=== PATIENT | male | born 1980 | race Caucasian/White ===

== ENCOUNTER 2018-06-28 09:54 | Outpatient (REF) | payer MEDICAID, SELFPAY ==
--- NOTE | 2018-06-28 09:00 | SKI_PTH ---
PATIENT: Juan Jordan LOC: [facility] U#:[id number] AGE/SX: 38/M ROOM: RE06/28/[address]: Elvia Neil MD : 1980 BED: DIS: 06/28/2018 SPEC #: [id number] RECD: 06/28/18 13:01 STATUS: NOREEN HENDERSON #: [id number] HARRY: 06/28/18 09:[address]: Elvia Neil DEPT: Surgical Specimen RECD BY: Florence Anne Tissues: 1 - SKIN BIOPSY(SHAVE/PUNCH) Procedures: SKIN LEVEL 4 Comments: [id number]
== END 2018-06-28 10:14 ==
LOC: LBN 09:54
PROVIDERS: PCP Family Medicine; Visit Provider Family Medicine
DX: C43.62 Malignant melanoma of left upper limb, including shoulder (principal)
CPT/HCPCS: 88305

== ENCOUNTER 2018-07-07 06:12 | Day surgery (SDC) | payer MEDICAID, SELFPAY ==
--- NOTE | 2018-07-07 06:54 | ROE_ITS ---
Date of service: 07/07/18 Time of Service: 09:45 Operative Note DATE OF PROCEDURE: 07/07/18 PRE-OP DIAGNOSIS: Melanoma left upper extremity POST-OP DIAGNOSIS: same PROCEDURE: Wide local excision with sentinel lymph node biopsy SURGEON: Shantel Silver LOCOMOTIVE CRANE OPERATOR: Zachery Griffith ANESTHESIA: GETA (ASA 3/ Arnold Mays CRNA) ESTIMATED BLOOD LOSS: 20 PATHOLOGY: other ([place] lymph node/ skin lesion) COMPLICATIONS: None Patient was transported to: PACU Patient's condition: stable Implants: None Indications: Mr. Jordan is a pleasant 38 year old male with a biopsy proven melanoma of his LUE. Wide local excision and SLN bx were discussed in the office. Risks, benefits, complications were reviewed with the patient as well as alternative. Complications include but are not limited to bleeding, infection, wound dehiscence, inability to find the sentinel node, need for a second surgery if the margins are not wide enough and adverse reaction to the medication. Questions were entertained and answered to his satisfaction and he wished to proceed. No guarantees were given or implied. Findings: melanoma- 1 cm Specimen size- 8 x 4 cm One blue lymphnode with 2 others attached. The blue lymph node was also hot Axillary scan- 40,885 SLN- 28,843 Post- excision axillary- 850 Procedure Description: AT 7 am the patient was taken to the Radiology department and 3 cc of radioactive material was infected into the dermis around the skin lesion on his LUE. The patient was then scanned and the lymphatic drainage was marked in the left axilla. The patient was brought back to same Day Surgery. The patient was then taken back to the Operating room at 10:30. The patient was placed in a supine position and placed under General anesthesia with LMA. Once the LMA was secured he was placed in a right decubitous position. He was secured with a soares bag and a belt over his legs. His left arm was then placed on a Gonzalez stand with 3 pillows and secured with tape. The dermis around the skin lesion was injected with 1 cc of Methilyn blue. The hair in the left axilla was clipped. The left axilla, side of his chest and his LUE/shoulder was prepped and draped in a standard fashion with chlorprep. The axilla was scanned and the hot area was marked. The count was 40,885. 2% Lidocaine mixed 50/50 with Bupivocaine 05% with epi was injected into the skin and subcutaneous tissue in the axilla. A 2 cm incision was made and using blunt dissection with hemostats a blue lymphnode was identified. There were 2 other lymph nodes were noted to be adhered to the blue lymph node. All 3 lymph nodes were removed. The radioactivity was counted at 28,843. The axilla was scanned again and the count was 850. No other blue nodes were identified. The wound was irrigated with saline. There was a small bleeding area noted and c auterized. The lymph nodes were placed in formalin and sent to pathology. The wound was then dry. The subcutaneous tissue was re-approximated with 3-0 vicryl. The dermis was closed with 4-0 vicryl. The skin was cleaned and dried and skin affix was applied. While the axillary incision was closed by EDNA Greenwood, I injected the same local anesthetic around the lesion on his left Upper extremity. The lesion was measured at 1 cm. An elliptical area was marked measuring 4 cm wide and 8 cm long. An incision was made with a 10 blade. Using cautery the dissection was continued through the subcutaneous tissue down to the muscle. The skin lesion was removed and marked with a 2 proline in the superior border. The specimen was placed into formalin. The subcutaneous tissue was re-approximated with 2-0 vicryl in 2 layers. The dermis was re-approximated with 2-0 proline. The skin was cleaned and dried. Mastasol and steri-strips were applied. A dry dressing was applied and secured with tape. The patient was woken up extubated and taken to the PACU in stable condition. There were no immediate complications. The sponge, instrument and needle counts were correct at the end of the case.
--- NOTE | 2018-07-07 06:54 | W.PM.DSUDISC ---
Discharge Plan Disposition Patient Disposition: HOME Condition: Good Discharge Details Reason For Visit: MELANOMA (L) UPEER EXTREMITY Attending Provider: Shantel Silver Primary Care Provider: Elvia Neil Home Meds and New Rx's Prescriptions: New oxycodone 5 mg Tablet 5 mg PO Q6H PRN PRN (Reason: Pain) Qty: 14 RF: 0 Continued AEROCHAMBER 1 EACH spacer 1 ea Miscellaneous QID PRNQty: 1 RF: 0 albuterol sulfate [ProAir HFA] 8.5 GM HFA aerosol inhaler 1 - 2 puff Inhalation Q6H PRN Qty: 1 RF: 5 Discharge Instructions Instructions: Care For Your Stitches (DC) Additional Instructions: Activity at Home after surgery: 1. Make sure you walk outside at least 4 times per day 2. You should be able to climb a flight of stairs 3. No driving while in pain or taking pain medications 4. No strenuous activity or heavy lifting for 4 weeks (open surgery) Diet, Nutrition, & wound healin. Avoid alcohol until after you are recovered from your surgery 2. Make sure to eat plenty of lean protein (meat, fish, eggs, cottage cheese, beans) 3. Eat a variety of fruits and vegetables. Eat plenty of high fiber foods to avoid constipation. 4. Drink plenty of liquids to stay hydrated and avoid constipation Pain Medications: 1. Alternate Tylenol 650 mg and Ibuprofen 600 mg every 3 hours 2. If a narcotic has been prescribed take as directed only for breakthrough pain For Constipation: 1. Take Milk of Magnesia or MiraLax daily as needed for constipation Other: 1. You may shower daily. Do not scrub the incisions 2. Do not soak the incisions for 1 week 3. You may alternate ice and heat as needed for pain and swelling Wound Care: 1. Keep the incisions clean and dry Please call our office if you develop: 1. Fevers >101.5 2. Nausea or Vomiting 3. Worsening pain 4. Redness and thick discharge from the wounds If after hours please call the Hospital at and ask to speak to the on-call surgeon Referrals: Shantel Silver MD [ [facility] STAFF PHYSICIAN] - 07/20/18 2:00 pm Activity:: careful with left arm Diet:: As Tolerated Discharge Orders Discharge Orders: Discharge Order (Routine); Ordered 07/07/18 Ordered By: Shantel Silver DS: Diagnosis Discharge Diagnosis (1) Melanoma: Status: Acute (2) H/O melanoma excision: Status: Acute (3) H/O lymph node biopsy: Status: Acute
--- NOTE | 2018-07-07 06:57 | PDOC.DSDIS_ITS ---
Discharge Plan Disposition Patient Disposition: HOME Condition: Good Discharge Details Reason For Visit: MELANOMA (L) UPEER EXTREMITY Attending Provider: Shantel Silver Primary Care Provider: Elvia Neil Home Meds and New Rx's Prescriptions: New oxycodone 5 mg Tablet 5 mg PO Q6H PRN PRN (Reason: Pain) Qty: 14 RF: 0 Continued AEROCHAMBER 1 EACH spacer 1 ea Miscellaneous QID PRNQty: 1 RF: 0 albuterol sulfate [ProAir HFA] 8.5 GM HFA aerosol inhaler 1 - 2 puff Inhalation Q6H PRN Qty: 1 RF: 5 Discharge Instructions Instructions: Care For Your Stitches (DC) Additional Instructions: Activity at Home after surgery: 1. Make sure you walk outside at least 4 times per day 2. You should be able to climb a flight of stairs 3. No driving while in pain or taking pain medications 4. No strenuous activity or heavy lifting for 4 weeks (open surgery) Diet, Nutrition, & wound healin. Avoid alcohol until after you are recovered from your surgery 2. Make sure to eat plenty of lean protein (meat, fish, eggs, cottage cheese, beans) 3. Eat a variety of fruits and vegetables. Eat plenty of high fiber foods to avoid constipation. 4. Drink plenty of liquids to stay hydrated and avoid constipation Pain Medications: 1. Alternate Tylenol 650 mg and Ibuprofen 600 mg every 3 hours 2. If a narcotic has been prescribed take as directed only for breakthrough pain For Constipation: 1. Take Milk of Magnesia or MiraLax daily as needed for constipation Other: 1. You may shower daily. Do not scrub the incisions 2. Do not soak the incisions for 1 week 3. You may alternate ice and heat as needed for pain and swelling Wound Care: 1. Keep the incisions clean and dry Please call our office if you develop: 1. Fevers >101.5 2. Nausea or Vomiting 3. Worsening pain 4. Redness and thick discharge from the wounds If after hours please call the Hospital at and ask to speak to the on-call surgeon Referrals: Shantel Silver MD [ [facility] STAFF PHYSICIAN] - 07/20/18 2:00 pm Activity:: careful with left arm Diet:: As Tolerated Discharge Orders Discharge Orders: Discharge Order (Routine); Ordered 07/07/18 Ordered By: Shantel Silver DS: Diagnosis Discharge Diagnosis (1) Melanoma: Status: Acute (2) H/O melanoma excision: Status: Acute (3) H/O lymph node biopsy: Status: Acute
== END 2018-07-07 06:32 | disposition home or self-care (01) ==
PROVIDERS: PCP Family Medicine; Visit Provider Surgery
DX: R69 Illness, unspecified (principal)

== ENCOUNTER 2018-07-07 06:43 | Day surgery (SDC) | payer MEDICAID, SELFPAY ==
[2018-07-07] VITALS (8 sets, daily range): BP systolic 73–134; BP diastolic 52–80; PULSE 50–80; RESP 15–21; TEMP 35.7–36.9; O2SAT 99–100
--- NOTE | 2018-07-07 06:49 | DI.NM_ITS ---
SYMPTOMS/DIAGNOSIS: SENTINEL LYMPH NODE BIOPSY FOR MELANOMA OF LEFT UPPER EXTREMITY, C43.9 SENTINEL NODE INJECTION: 1 mCi of filtered sulfur colloid was injected in the left shoulder by Dr. Silver. The patient was then scanned up to 15 minutes. A small region of increased photon density in the axilla is presumed to represent the sentinel node. A marker was placed on this site. Please see Dr. Silver's procedure report for further information.
--- NOTE | 2018-07-07 06:52 | ROE_ITS ---
Date of service: 07/07/18 Time of Service: 09:45 Operative Note DATE OF PROCEDURE: 07/07/18 PRE-OP DIAGNOSIS: Melanoma left upper extremity POST-OP DIAGNOSIS: same PROCEDURE: Wide local excision with sentinel lymph node biopsy SURGEON: Shantel Silver LOST CHARGE CARD CLERK: Zachery Griffith ANESTHESIA: GETA (ASA 3/ Arnold Mays CRNA) ESTIMATED BLOOD LOSS: 20 PATHOLOGY: other ([place] lymph node/ skin lesion) COMPLICATIONS: None Patient was transported to: PACU Patient's condition: stable Implants: None Indications: Mr. Jordan is a pleasant 38 year old male with a biopsy proven melanoma of his LUE. Wide local excision and SLN bx were discussed in the office. Risks, benefits, complications were reviewed with the patient as well as alternative. Complications include but are not limited to bleeding, infection, wound dehiscence, inability to find the sentinel node, need for a second surgery if the margins are not wide enough and adverse reaction to the medication. Questions were entertained and answered to his satisfaction and he wished to proceed. No guarantees were given or implied. Findings: melanoma- 1 cm Specimen size- 8 x 4 cm One blue lymphnode with 2 others attached. The blue lymph node was also hot Axillary scan- 40,885 SLN- 28,843 Post- excision axillary- 850 Procedure Description: AT 7 am the patient was taken to the Radiology department and 3 cc of radioactive material was infected into the dermis around the skin lesion on his LUE. The patient was then scanned and the lymphatic drainage was marked in the left axilla. The patient was brought back to same Day Surgery. The patient was then taken back to the Operating room at 10:30. The patient was placed in a supine position and placed under General anesthesia with LMA. Once the LMA was secured he was placed in a right decubitous position. He was secured with a soares bag and a belt over his legs. His left arm was then placed on a Gonzalez stand with 3 pillows and secured with tape. The dermis around the skin lesion was injected with 1 cc of Methilyn blue. The hair in the left axilla was clipped. The left axilla, side of his chest and his LUE/shoulder was prepped and draped in a standard fashion with chlorprep. The axilla was scanned and the hot area was marked. The count was 40,885. 2% Lidocaine mixed 50/50 with Bupivocaine 05% with epi was injected into the skin and subcutaneous tissue in the axilla. A 2 cm incision was made and using blunt dissection with hemostats a blue lymphnode was identified. There were 2 other lymph nodes were noted to be adhered to the blue lymph node. All 3 lymph nodes were removed. The radioactivity was counted at 28,843. The axilla was scanned again and the count was 850. No other blue nodes were identified. The wound was irrigated with saline. There was a small bleeding area noted and cauterized. The lymph nodes were placed in formalin and sent to pathology. The wound was then dry. The subcutaneous tissue was re-approximated with 3-0 vicryl. The dermis was closed with 4-0 vicryl. The skin was cleaned and dried and skin affix was applied. While the axillary incision was closed by EDNA Greenwood, I injected the same local anesthetic around the lesion on his left Upper extremity. The lesion was measured at 1 cm. An elliptical area was marked measuring 4 cm wide and 8 cm long. An incision was made with a 10 blade. Using cautery the dissection was continued through the subcutaneous tissue down to the muscle. The skin lesion was removed and marked with a 2 proline in the superior border. The specimen was placed into formalin. The subcutaneous tissue was re-approximated with 2-0 vicryl in 2 layers. The dermis was re-approximated with 2-0 proline. The skin was cleaned and dried. Mastasol and steri-strips were applied. A dry dressing was applied and secured with tape. The patient was woken up extubated and taken to the PACU in stable condition. There were no immediate complications. The sponge, instrument and needle counts were correct at the end of the case. cc: VANESSA HAYNES, EDEN
--- NOTE | 2018-07-07 06:54 | PDOC.DSDIS_ITS ---
Discharge Plan Disposition Patient Disposition: HOME Condition: Good Discharge Details Reason For Visit: MELANOMA (L) UPEER EXTREMITY Attending Provider: Shantel Silver Primary Care Provider: Elvia Neil Home Meds and New Rx's Prescriptions: New oxycodone 5 mg Tablet 5 mg PO Q6H PRN PRN (Reason: Pain) Qty: 14 RF: 0 Continued AEROCHAMBER 1 EACH spacer 1 ea Miscellaneous QID PRNQty: 1 RF: 0 albuterol sulfate [ProAir HFA] 8.5 GM HFA aerosol inhaler 1 - 2 puff Inhalation Q6H PRN Qty: 1 RF: 5 Discharge Instructions Instructions: Care For Your Stitches (DC) Additional Instructions: Activity at Home after surgery: 1. Make sure you walk outside at least 4 times per day 2. You should be able to climb a flight of stairs 3. No driving while in pain or taking pain medications 4. No strenuous activity or heavy lifting for 4 weeks (open surgery) Diet, Nutrition, & wound healin. Avoid alcohol until after you are recovered from your surgery 2. Make sure to eat plenty of lean protein (meat, fish, eggs, cottage cheese, beans) 3. Eat a variety of fruits and vegetables. Eat plenty of high fiber foods to avoid constipation. 4. Drink plenty of liquids to stay hydrated and avoid constipation Pain Medications: 1. Alternate Tylenol 650 mg and Ibuprofen 600 mg every 3 hours 2. If a narcotic has been prescribed take as directed only for breakthrough pain For Constipation: 1. Take Milk of Magnesia or MiraLax daily as needed for constipation Other: 1. You may shower daily. Do not scrub the incisions 2. Do not soak the incisions for 1 week 3. You may alternate ice and heat as needed for pain and swelling Wound Care: 1. Keep the incisions clean and dry Please call our office if you develop: 1. Fevers >101.5 2. Nausea or Vomiting 3. Worsening pain 4. Redness and thick discharge from the wounds If after hours please call the Hospital at and ask to speak to the on-call surgeon Referrals: Shantel Silver MD [ [facility] STAFF PHYSICIAN] - 07/20/18 2:00 pm Activity:: careful with left arm Diet:: As Tolerated Discharge Orders Discharge Orders: Discharge Order (Routine); Ordered 07/07/18 Ordered By: Shantel Silver DS: Diagnosis Discharge Diagnosis (1) Melanoma: Status: Acute (2) H/O melanoma excision: Status: Acute (3) H/O lymph node biopsy: Status: Acute CC:
[2018-07-07] MEDS: Lactated Ringers 1,000 ML 80 ML IV ×2 (08:15→10:46)
[2018-07-07] MEDS: ceFAZolin 2 GM/50 ML BAG IVPB (08:45)
--- NOTE | 2018-07-07 09:40 | LYM_PTH ---
PATIENT: Juan Jordan LOC: [facility] U#:[id number] AGE/SX: 38/M ROOM: RE07/07/[address]: Shantel Silver MD : 1980 BED: DIS: 07/07/2018 SPEC #: [id number] RECD: 07/08/18 11:53 STATUS: NOREEN RE #: [id number] HARRY: 07/07/18 09:[address]: Shantel Silver DEPT: Surgical Specimen RECD BY: Florence Anne ENTERED: 07/08/18 11:57 SP TYPE: LYM OTHR DR: Elvia Neil MD Tissues: 1 - LYMPH NODE RESECTION 2 - SKIN BIOPSY(SHAVE/PUNCH) Procedures: IMMUNOPEROXIDASE STAIN GROSS AND MICRO LEVEL 5 SKIN LEVEL 4 Comments: [id number] (BOTH SAMPLES RADIOACTIVE MATERIAL)
[2018-07-07] MEDS: Lidocaine 2% Multi-Dose 50 ML VIAL (10:00)
== END 2018-07-07 13:27 | disposition home or self-care (01) ==
LOC: DSU 06:44
PROVIDERS: PCP Family Medicine; Visit Provider Surgery
PROC: (CPT 38525; principal; 2018-07-07 09:00)
DX: C43.62 Malignant melanoma of left upper limb, including shoulder (principal); J44.9 Chronic obstructive pulmonary disease, unspecified; Z87.891 Personal history of nicotine dependence; F12.90 Cannabis use, unspecified, uncomplicated
CPT/HCPCS: 38525; 11606; 12034; 38792; 88305; 78195; 88307; 88361; J0690; J1885; J2250; J2405

== ENCOUNTER 2019-05-04 23:39 | Emergency (ER) | payer MEDICAID, SELFPAY ==
[2019-05-04 23:53] VITALS: BP 132/78; PULSE 83; RESP 16; TEMP 36.6; O2SAT 99
--- NOTE | 2019-05-05 00:04 | ED.GENADUL_ITS ---
Discharge Plan Disposition Patient Disposition: HOME Condition: Stable Discharge Details Chief Complaint: Headache Clinical Impression: Migraine Primary Care Provider: Elvia Neil ED Provider: Anil Damon Home Meds and New Rx's Prescriptions: Continued AEROCHAMBER 1 EACH spacer 1 ea Miscellaneous QID PRNQty: 1 RF: 0 albuterol sulfate [ProAir HFA] 8.5 GM HFA aerosol inhaler 1 - 2 puff Inhalation Q6H PRN Qty: 1 RF: 5 Discharge Instructions Instructions: Migraine Headache (ED) Additional Instructions: you can take 1000mg tylenol and 600mg ibuprofen every 6 hours for pain as needed follow up with your primary care provider within 1-2 weeks if you have severe worsening pain, persistent vomit or fevers return to the [facility] department Medical Decision Making 39 yo male who states he has had migraines in the past was playing video games when he started to have a pain in superior head with n/v. FEels it is worse than prior migrianes, slowly worsened. Denies vision changes, weakness, numbness. CN II-XII are intact and no focal deficits, NIH of 0. No fevers or meningismus so doubt brush maker infection. Given symptoms are worse and within 6 hours of symptoms onset will obtain CT to eval for sah vs sdh labs and imaging show no acute findings, and he is now sleeping and has no pain. Will d/c and have him f/u with pcp, return precautions given Differential Diagnosis Differential Diagnosis: migraine, tension headache, sah, sdh Imaging Data Radiologic Study: Attestation: I personally reviewed and interpreted this imaging study as follows: Imaging: CT Scan Radiologist's impression: IMPRESSION: 1. Incidental finding of a pineal cyst. 2. No intracranial hemorrhage. 3. No mass or edema of the cerebrum, brainstem, or cerebellum. 4. Clear sinuses. Lab Data Lab results reviewed: Yes I reviewed the patient's lab results. HPI General Mode of arrival: ambulatory . Date/Time Provider Initiated Documentation: 05/04/19 23:43 . Limitations to Documentation: no limitations . Information obtained by: patient . History of Present Illness 39 year old M presents to the emergency department with the chief complaint of headache, described as moderate and severe, Quality is described as aching, Patient reports no radiation. Patient started experiencing this hour(s) (2) and it has been constant. No relieving factors improve symptom(s), No exacerbating factors reported . Patient notes nausea/vomiting. Patient did receive the following treatments prior to arrival, none Related Data Home Medications Medication Instructions Recorded Confirmed albuterol sulfate [ProAir HFA] 1 - 2 puff INHALATION Q6H PRN #1 07/01/17 07/07/18 inhaler Previous Rx's Medication Instructions Recorded albuterol sulfate [ProAir HFA] 1 - 2 puff INHALATION Q6H PRN #1 07/01/17 inhaler Allergies Allergy/AdvReac Type Severity Reaction Status Date / Time No Known Allergies Allergy Unverified 05/05/19 00:25 General Stated Complaint: Headache JOÃO: 3 Review of Systems All systems reviewed & are unremarkable except as noted in HPI and below Constitutional Constitutional: Denies chills, Denies fever(s) and Denies weakness ENT Ears, Nose, Mouth, and Throat: Denies change in voice Cardiovascular Cardiovascular: Denies chest pain and Denies dyspnea Respiratory Respiratory: Denies cough and Denies dyspnea Gastrointestinal Gastrointestinal: Denies abdominal pain Musculoskeletal Musculoskeletal: Denies joint swelling Neurologic Neurologic: Denies weakness [facility] Social History Smoking/Tobacco Use Status: Current-Occasional Tobacco Type: e-cigarettes Alcohol Intake: never Drug use: Daily Substance use type: marijuana Details: Pt states he vapes CBD, marijuana daily Housing: house current occupation: none Pets and animals: Yes Pets and animals: cat(s) and other Details: rabbit What type of physical activity do you participate in: none Special anabella needs: No Do you feel safe at home: Yes Do you feel safe in your relationship?: Yes Exam Const General: no acute distress Orientation: alert HENMT Head: normal to inspection Ears: external ears normal General nose exam: external nose normal Mouth: moist mucous membranes Eyes General: appearance normal, both eyes and all related structures Neck Neck: normal visual inspection Resp Effort & Inspection: normal respiratory effort and able to speak in complete sentences Cardio Rate: regular rate Skin General skin exam: no rashes or lesions noted Neuro General: alert and oriented x3 Extrem General: normal to inspection Psych Mental Status: mental status grossly normal Course Vital Signs Vital signs: Vital Signs Temperature 36.6 C 05/04/19 23:53 Pulse 83 05/04/19 23:53 Respiratory Rate 16 05/04/19 23:53 Blood Pressure 132/78 05/04/19 23:53 Pulse Oximetry 99 05/04/19 23:53 Temperature 36.6 C 05/04/19 23:53 Temperature Source Temporal Artery Scan 05/04/19 23:53 Pulse 83 05/04/19 23:53 Respiratory Rate 16 05/04/19 23:53 Respiratory Effort 05/04/19 23:56 Blood Pressure 132/78 05/04/19 23:53 Pulse Oximetry 99 05/04/19 23:53 Oxygen Delivery Method Room Air 05/04/19 23:53 Oxygen Flow Rate 0 05/04/19 23:53 Pain Level 8 05/04/19 23:53
[2019-05-05] MEDS: Dexamethasone 10 MG/ML VIAL IVP (00:16)
[2019-05-05] MEDS: Normal Saline 1,000 ML 1000 ML IV (00:16)
[2019-05-05 00:17] LABS: Abs Immature Grans 0.04 k/cumm (0.0-0.09); Absolute Basophil Count 0.03 k/cumm (0.0-0.2); Absolute Eosinophil Count 0.07 k/cumm (0.0-0.7); Absolute Lymphocyte Count 1.13 k/cumm (1.2-3.4); Absolute Monocyte Count 0.37 k/cumm (0.11-0.7); Absolute Neutrophil Count 11.62 k/cumm (1.2-6.7); Basophils % 0.2; Eosinophils % 0.5; HCT 43.8 % (40.0-50.0); HGB 15.3 g/dL (13.5-17.5); Immature Grans % 0.3 %; Lymphocytes % 8.5; Mean Corp. HGB Concentration 34.9 g/dL (32.0-36.0); Mean Corpuscular Hemoglobin 29.4 pg (27.0-33.0); Mean Corpuscular Volume 84.2 fL (80-95); Monocytes % 2.8; Neutrophils % 87.7; Platelet Count 275 x1000/uL (130-400); RBC Distribution Width 12.7 % (11.8-14.1); White Blood Cell Count 13.25 k/cumm (4.4-10.8)
[2019-05-05] MEDS: Prochlorperazine 10 MG/2 ML VIAL IVP (00:18)
[2019-05-05 00:26] VITALS: BP 121/78; PULSE 68; RESP 18; O2SAT 98
[2019-05-05 00:28] LABS: INR 1.1 (0.9-1.1); Prothrombin Time 10.8 sec (9.3-11.0)
[2019-05-05 00:31] LABS: PTT Activated 24.1 sec (21.0-31.4)
[2019-05-05 00:32] LABS: ALT 25 U/L (16-63); AST 16 U/L (15-37); Albumin 4.1 g/dL (3.4-5.0); Alkaline Phosphatase 60 U/L (46-116); Anion Gap 12.7 mmol/L (3-11); BUN 8 mg/dL (7-18); Bilirubin, Total 0.5 mg/dL (0.2-1.0); CO2 24.3 mmol/L (21.0-32.0); CREATININE 1.13 mg/dL (0.70-1.30); Chloride 104 mmol/L (98-107); Glucose 126 mg/dL (74-106); Potassium 3.7 mmol/L (3.5-5.1); Sodium 141 mmol/L (136-145)
--- NOTE | 2019-05-05 00:39 | DI.CT_ITS ---
EXAM: CT HEAD WO CLINICAL HISTORY: headache. TECHNIQUE: Imaging Protocol: Axial computed tomography images with coronal and sagittal reformatted images were created and reviewed COMPARISON: No exams were available for comparison FINDINGS: Ventricles and Extra axial spaces: Normal in size and morphology for the patient's age. There appears to be a 1.2 centimeter peripherally calcified lesion in the region of the pineal gland suspicious fo r an incidental pineal cyst. Hemorrhage: None. Cerebral parenchyma: Normal. Midline shift: None. Brainstem/Cerebellum: Normal. Calvarium: Normal. Visualized Paranasal sinuses/Mastoids: Clear. IMPRESSION: 1. No acute intracranial process. 2. Findings suspicious for a pineal cyst. Incidental finding of a pineal cyst. DATA REPOSITORY: All CT scans at this facility are submitted to the National Radiology Data Registry (NRDR) Dose Index Registry (DIR) with the [employer] (A[employer]). RADIATION OPTIMIZATION: All CT scans at this facility use at least one of these dose optimization te chniques: automated exposure control; mA and/or kV adjustment per patient size (includes targeted exa ms where dose is matched to clinical indication); or iterative reconstruction.
--- NOTE | 2019-05-05 00:54 | DI.VRAD_ITS ---
PROCEDURE INFORMATION: Exam: CT Head Without Contrast Exam date and time: 05/05/2019 12:34 AM Age: 39 years old Clinical indication: Pain; Headache not specified TECHNIQUE: Imaging protocol: Computed tomography of the head without contrast. Radiation optimization: All CT scans at this facility use at least one of these dose optimization techniques: automated exposure control; mA and/or kV adjustment per patient size (includes targeted exams where dose is matched to clinical indication); or iterative reconstruction. COMPARISON: No relevant prior studies available. FINDINGS: Brain: Appearance suggesting incidental pineal cyst. This is a rim calcified structure measuring approximately 12 mm. Ventricles: Normal. No ventriculomegaly. Bones/joints: Unremarkable. No acute fracture. Sinuses: Visualized sinuses are unremarkable. No fluid levels. Mastoid air cells: Visualized mastoid air cells are well aerated. Soft tissues: Unremarkable. IMPRESSION: 1. Incidental finding of a pineal cyst. 2. No intracranial hemorrhage. 3. No mass or edema of the cerebrum, brainstem, or cerebellum. 4. Clear sinuses. Dictated and Authenticated by: Lion Lamb MD. Ordering:SANDY Ma MD
[2019-05-05 01:19] VITALS: BP 116/71; PULSE 72; RESP 16; O2SAT 98
== END 2019-05-05 01:25 | disposition home or self-care (01) ==
PROVIDERS: Emergency Provider Emergency Medicine; PCP Family Medicine
DX: G43.809 Other migraine, not intractable, without status migrainosus (principal); R11.2 Nausea with vomiting, unspecified
CPT/HCPCS: 36415; 80053; 96361; 96374; 96375; 99284; 70450; 85025; 85610; 85730; J0780; J1100

== ENCOUNTER 2019-06-01 01:49 | Outpatient (CLI) | payer MEDICAID, SELFPAY ==
--- NOTE | 2019-06-01 14:43 | DI.MRI_ITS ---
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 TECHNIQUE: Multiplanar multisequence MRI of the brain was performed. Post gadolinium T1 axial and coronal sequences were performed in addition to the routine sequences. CONTRAST MATERIAL: IV Contrast: 12 ML of Dotarem contrast administered. COMPARISON: CT HEAD WO from 05/05/2019 FINDINGS: VENTRICLES AND EXTRA AXIAL SPACES: Normal in size and morphology for the patient's age. HEMORRHAGE: None. CEREBRAL PARENCHYMA: No focus of restricted diffusion to suggest acute infarct. No space-occupying le estevan identified. MIDLINE SHIFT: None. BRAINSTEM/CEREBELLUM: Normal. Orbits and pituitary: Unremarkable. ENHANCEMENT: No suspicious enhancement identified. VISUALIZED PARANASAL SINUSES/MASTOIDS: Clear. OTHER FINDINGS: As seen on CT, there is a pineal cyst measuring 12 millimeters in greatest dimension. There is no mass effect. There is no ventricular dilatation. There is no abnormal enhancement. 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 There is no suspicious mass. The remainder of the brain appears normal. DATA REPOSITORY:
[2019-06-01] MEDS: Normal Saline Flush 10 ML SYR IVP (15:23)
[2019-06-01] MEDS: Gadoterate meglumine 20 ML VIAL 12 ML IVP (15:24)
== END 2019-06-01 02:09 ==
PROVIDERS: PCP Family Medicine; Visit Provider Family Medicine
DX: E34.8 Other specified endocrine disorders (principal)
CPT/HCPCS: 70553

== ENCOUNTER 2019-07-23 12:29 | Emergency (ER) | payer MEDICAID, SELFPAY ==
[2019-07-23 12:35] VITALS: BP 137/90; PULSE 70; RESP 16; TEMP 36.8; O2SAT 98
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
[2019-07-23] MEDS: diphenhydrAMINE 25 MG CAP PO (13:10)
== END 2019-07-23 13:19 | disposition home or self-care (01) ==
PROVIDERS: Emergency Provider Registered Nurse Emergency; PCP Family Medicine
DX: T63.461A Toxic effect of venom of wasps, accidental (unintentional), initial encounter (principal); R60.0 Localized edema; J44.9 Chronic obstructive pulmonary disease, unspecified; F17.210 Nicotine dependence, cigarettes, uncomplicated
CPT/HCPCS: 99282; 99283

== ENCOUNTER 2021-04-09 02:26 | Outpatient (CLI) | payer MEDICAID, SELFPAY ==
[2021-04-09 10:13] LABS: Hemoglobin A1C 5.4 % (<5.7)
[2021-04-09 10:41] LABS: Calculated LDL 123 mg/dL (<100); Cholesterol 191 mg/dL (<200); HDL Cholesterol 38 mg/dL (40-60); Triglyceride 153 mg/dL (<150)
== END 2021-04-09 02:27 | disposition home or self-care (01) ==
LOC: LBO 02:27
PROVIDERS: PCP Nurse Practitioner Family; Visit Provider Nurse Practitioner Family
DX: Z13.220 Encounter for screening for lipoid disorders (principal); Z13.1 Encounter for screening for diabetes mellitus
CPT/HCPCS: 36415; 80061; 83036

== ENCOUNTER 2021-10-20 21:36 | Emergency (ER) | payer MEDICAID, SELFPAY ==
[2021-10-20 22:01] VITALS: BP 135/82; PULSE 64; RESP 18; TEMP 36.6; O2SAT 97
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
[2021-10-20] MEDS: Amoxicillin 875/Clav. 125 TAB PO (22:35)
[2021-10-20 22:39] VITALS: BP 135/82; PULSE 64; RESP 18; TEMP 36.6; O2SAT 97
== END 2021-10-20 22:40 | disposition home or self-care (01) ==
PROVIDERS: Emergency Provider Emergency Medicine; PCP Nurse Practitioner Family
DX: K04.7 Periapical abscess without sinus (principal)
CPT/HCPCS: 99283

== ENCOUNTER 2022-11-12 08:40 | Emergency (ER) | payer MEDICAID, SELFPAY ==
[2022-11-12 09:01] VITALS: BP 143/81; PULSE 60; RESP 14; TEMP 36.8; O2SAT 99
[2022-11-12] MEDS: Balanced Salt Solution 15 ML BTL OP (09:11)
[2022-11-12] MEDS: Erythromycin Ophth Oint 3.5 GM TUBE OP (09:12)
[2022-11-12] MEDS: Tetracaine 0.5% 4 ML BTL OP (09:12)
[2022-11-12] MEDS: Fluorescein STRIPS 100/BOX 1 MG OP (09:12)
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
== END 2022-11-12 09:57 | disposition home or self-care (01) ==
PROVIDERS: Emergency Provider Emergency Medicine; PCP Nurse Practitioner Family
DX: T15.01XA Foreign body in cornea, right eye, initial encounter (principal); F17.210 Nicotine dependence, cigarettes, uncomplicated
CPT/HCPCS: 65222; 99282

== ENCOUNTER 2024-01-05 12:49 | Emergency (ER) | payer MEDICAID, SELFPAY ==
[2024-01-05] VITALS (19 sets, daily range): BP systolic 121–140; BP diastolic 65–90; PULSE 49–74; RESP 10–19; TEMP 37.1; O2SAT 97–100
--- NOTE | 2024-01-05 12:45 | RT.EKG_ITS ---
APPROVED REPORT Exam: Resting ECG Reason for Exam: chest pain Patient Location: E HR:81 bpm ECG Measurements Heart Rate 81 AXIS NJ 152 P 85 QRSd 104 QRS 113 QT 353 T 75 QTc 409 Conclusion Incomplete analysis due to missing data in precordial lead(s) Sinus rhythm...normal P axis, V-rate 60- 99 Ventricular bigeminy...bigeminy string>4 w/ V complexes ST elev, probable normal early repol pattern...ST elevation, age<55 Normal sinus rhythm at a rate of 81 with interventricular conduction delay and atrial enlargement wit h PVCs. No acute injury pattern. No prior for comparison.
--- NOTE | 2024-01-05 13:00 | RT.EKG_ITS ---
APPROVED REPORT Exam: Resting ECG Reason for Exam: Chest Pain Patient Location: E HR:71 bpm ECG Measurements Heart Rate 71 AXIS KS 146 P 78 QRSd 104 QRS 94 QT 368 T 73 QTc 402 Conclusion Sinus rhythm...normal P axis, V-rate 60- 99 Probable left atrial enlargement...P >50mS, <-0.10mV V1 ST elev, probable normal early repol pattern...ST elevation, age<55 Normal sinus rhythm at a rate of 71. Interventricular conduction delay. KS and QTc within normal li mit. T wave version in V2. No ST segment abnormalities.
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
[2024-01-05 13:47] LABS: Abs Immature Grans 0.05 10^3/uL (0.0-0.06); Absolute Basophil Count 0.05 10^3/uL (0.0-0.2); Absolute Eosinophil Count 0.14 10^3/uL (0.0-0.7); Absolute Lymphocyte Count 1.57 10^3/uL (1.2-3.4); Absolute Monocyte Count 0.69 10^3/uL (0.1-0.8); Absolute Neutrophil Count 7.64 10^3/uL (1.2-6.7); Basophils % 0.5 %; Eosinophils % 1.4 %; HCT 48.2 % (40.0-50.0); HGB 16.2 g/dL (13.5-17.5); Immature Grans % 0.5 %; Lymphocytes % 15.5 %; MCH 29.6 pg (27.0-33.0); MCHC 33.6 % (32.0-36.0); MCV 88 fL (80-95); Monocytes % 6.8 %; Neutrophils % 75.3 %; Platelet Count 246 10^3/uL (130-400); RBC 5.48 10^6/uL (4.36-5.78); RDW 13.2 % (11.8-14.1); RDW-SD 42.6 fL; WBC 10.14 10^3/uL (4.4-10.8)
[2024-01-05 14:08] LABS: ALT 20 U/L (16-63); AST 16 U/L (15-37); Albumin 4.2 g/dL (3.4-5.0); Alkaline Phosphatase 83 U/L (46-116); Anion Gap 10.7 mmol/L (3-11); BUN 12 mg/dL (7-18); Bilirubin, Total 0.43 mg/dL (0.2-1.0); CO2 26.3 mmol/L (21.0-32.0); CREATININE 1.2 mg/dL (0.70-1.30); Calcium 9.9 mg/dL (8.5-10.1); Chloride 106 mmol/L (98-107); Estimated GFR 77.92 (mL/min/1.73m2); Glucose 87 mg/dL (74-106); Lipase 34 U/L (16-77); Magnesium 2.2 mg/dL (1.8-2.4); Potassium 3.9 mmol/L (3.5-5.1); Sodium 143 mmol/L (136-145); Troponin I 4 ng/L (<or=76)
[2024-01-05 14:19] LABS: D-Dimer 304 ng/mlFEU (<500)
[2024-01-05 14:42] LABS: COVID-19 PCR Negative (Negative); Influenza A PCR Negative (Negative); Influenza B PCR Negative (Negative); RSV PCR Negative (Negative)
--- NOTE | 2024-01-05 14:45 | DI.RAD_ITS ---
Exam(s) XR CHEST 2V PA LATERAL EXAM: XR CHEST 2V PA LATERAL CLINICAL HISTORY: chest pain TECHNIQUE: 2D digital imaging was performed of the chest. Three images were obtained. PA and later al views were obtained. COMPARISON: CR CHEST 2 VIEWS PA,LAT from 01/25/2015 FINDINGS: MEDIASTINUM: Normal. HEART: Normal. PULMONARY VASCULATURE: Normal. LUNGS: There is a 5 mm nodule projected over the posterior aspect of the right 7th rib. This was not present on the prior examination. No focal consolidating infiltrates are seen. PLEURAL SPACE: No pleural effusion or pneumothorax. BONE:Within normal limits for the patient's age. OTHER FINDINGS:Normal. IMPRESSION: 1. No acute pulmonary findings. 2. 5 mm nodule in the right mid lung. Noncontrast CT scan of the chest should be obtained for furthe r evaluation. Unexpected findings DATA REPOSITORY: RADIATION DOSE DELIVERED:
[2024-01-05 14:52] LABS: Troponin I 4 ng/L (<or=76)
--- NOTE | 2024-01-05 15:00 | DI.CT_ITS ---
Exam(s) CT CHEST WO EXAM: CT CHEST WO CLINICAL HISTORY: 5mm pulm nodule, hx melanoma. TECHNIQUE: Multi planar reconstructions were performed. CONTRAST MATERIAL: None COMPARISON: CR CHEST 2 VIEWS PA,LAT from 01/25/2015 CR XR CHEST 2V PA LATERAL from 01/05/2024 FINDINGS: CHEST: LUNGS: There is a 10 x 8 mm noncalcified slightly spiculated nodule in the posterior segment of the r ight upper lobe, this corresponding to finding on recent chest radiograph. In addition, there is bela e ground-glass and patchy infiltrate more medially in the right upper lobe evident. There are no sig nificant focal findings in the right middle lobe and basal segments of the right lower lobe. There i s mild involvement of infiltrate in the medial aspect of the superior segment of the right lower lobe . There are no significant focal findings in the opposite-left lung. There are no pleural effusions. There are no significant focal findings in the trachea and mainstem bronchi. MEDIASTINUM: There is no obvious hilar adenopathy evident on this non few study. Slightly increased tissue in the subcarinal region is noted which may indicate adenopathy at this level. There is no ad enopathy in the anterior mediastinal fat. No supraclavicular adenopathy. No axillary adenopathy brittany dent. CARDIAC: Heart size is normal. There is no pericardial effusion.Caliber of the thoracic aorta is wit hin normal limits. VISUALIZED UPPER ABDOMEN:No adrenal masses. Spleen size normal. No ascites. OSSEOUS: No significant osseous lesions.. IMPRESSION: 1. There is a 10 x 8 millimeter noncalcified mildly spiculated nodule in the posterior segment of the right upper lobe, this corresponding to the finding on recent chest x-ray of 01/05/2024. Suspicious for neoplasm, possibly metastatic given the history here. 2. There is also some adjacent more medially located patchy infiltrate in the right upper lobe and ortiz perior segment of the right lower lobe. This is only visible on CT scan. No significant focal findi ngs in the opposite-left lung. There are no pleural effusions. 3. Mild soft tissue fullness in the subcarinal region may indicate developing adenopathy. There is n o obvious hilar adenopathy. Findings called by myself to ER provider 01/05/2024 at 3:54 p.m. RADIATION DOSE DELIVERED: Total DLP DATA REPOSITORY: All CT scans at this facility are submitted to the National Radiology Data Registry (NRDR) Dose Index Registry (DIR) with the [employer] (ACR). RADIATION OPTIMIZATION: All CT scans at this facility use at least one of these dose optimization te chniques: automated exposure control; mA and/or kV adjustment per patient size (includes targeted exa ms where dose is matched to clinical indication); or iterative reconstruction.
[2024-01-05 15:14] LABS: Source Nasopharynx
--- NOTE | 2024-01-05 16:22 | ED.PROG_ITS ---
Date of service: 01/05/24 Time of Service: 20:13 Medical Decision Making Care was excepted and transition from [facility] pending CT chest. CT chest shows evidence of a spiculated nodule in the right upper lobe with multiple additional episodes of concern for metastatic disease per radiology interpretation my rev iew. Pulmonology referral to an [facility] placed for biopsy, also placed a referral to [facility] for urgent follow-up with pulmonology for confirmation of nodule and biopsy. Patient will need close outpatient follow-up with his primary care physician, Juan Carlos Vargas. Urgent request for follow-up place, long discussion with patient with all its questions answered to the best of my ability. Quality:SDOH Health Related Social Needs: No Data to Display Sign Out Sign Out Data: Sign Out Comment: negative cardiac PE workup, likely costochondritis- but am performing CT chest wo for new 5mm pulm nodule, hx of malignant melanoma. Has poor PCP relationship- would likely not receive timely follow-up if not performed here. Pending results for disposition, likely discharge with PCP f/u after results of CT obtained. Last updated by Adrian Villegas PA at 01/05/24 15:15 Discharge Plan Disposition Patient Disposition: Home Discharge Details Clinical Impression: Lung mass, Melanoma Primary Care Provider: Juan Carlos Vargas ED Provider: Adrian Villegas Home Meds and New Rx's Prescriptions: Continued ibuprofen 800 mg tablet 800 mg PO Q8H PRN (Reason: pain) Qty: 90 4RF albuterol sulfate 90 mcg/actuation HFA aerosol inhaler 2 puff inhalation Q6H PRN (Reason: shortness of breath or wheezing) Qty: 8.5 3RF AEROCHAMBER 1 EACH spacer 1 ea Miscellaneous QID PRNQty: 1 0RF Discharge Instructions Additional Instructions: follow-up with numerologist if you do not hear from them tomorrow follow-up with Juan Carlos Vargas as you will need very close outpatient reassessment and follow-up on the lung mass You will likely need biopsy to determine if this is a malignant or cancerous lesion Please return should you have new or worsening complaints Referrals: Juan Carlos Vargas, C[employer] OUT STITCHER [Primary Care Provider] - Isadora Landa MD [ [facility] STAFF PHYSICIAN] -
== END 2024-01-05 16:34 | disposition home or self-care (01) ==
PROVIDERS: Emergency Provider Physician Assistant; PCP Nurse Practitioner Family
DX: R00.8 Other abnormalities of heart beat (principal); R91.1 Solitary pulmonary nodule; M94.0 Chondrocostal junction syndrome [Tietze]; J44.9 Chronic obstructive pulmonary disease, unspecified; F17.210 Nicotine dependence, cigarettes, uncomplicated; F17.290 Nicotine dependence, other tobacco product, uncomplicated
CPT/HCPCS: 00123; 36415; 71250; 80053; 83690; 87637; 93005; 99285; 71046; 83735; 84484; 85025; 85379; 93010; 99284

== ENCOUNTER 2024-04-04 04:36 | Outpatient (CLI) | payer MEDICAID, SELFPAY ==
[2024-04-04 17:47] LABS: Troponin I < 4 ng/L (<or=76)
== END 2024-04-04 04:37 | disposition home or self-care (01) ==
LOC: LBO 04:36
PROVIDERS: PCP Nurse Practitioner Family; Visit Provider Internal Medicine Hospice and Palliative Medicine
DX: C43.9 Malignant melanoma of skin, unspecified (principal)
CPT/HCPCS: 84484

== ENCOUNTER 2024-04-11 03:21 | Outpatient (CLI) | payer MEDICAID, SELFPAY ==
[2024-04-11 14:52] LABS: Troponin I < 4 ng/L (<or=76)
== END 2024-04-11 03:22 | disposition home or self-care (01) ==
LOC: LBO 03:21
PROVIDERS: PCP Nurse Practitioner Family; Visit Provider Internal Medicine Hospice and Palliative Medicine
DX: C43.9 Malignant melanoma of skin, unspecified (principal)
CPT/HCPCS: 36415; 84484

== ENCOUNTER 2024-04-23 03:24 | Emergency (ER) | payer MEDICAID, SELFPAY ==
[2024-04-23] VITALS (19 sets, daily range): BP systolic 124–155; BP diastolic 82–99; PULSE 49–76; RESP 14–18; TEMP 36.3; O2SAT 96–100
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
[2024-04-23] MEDS: diphenhydrAMINE 50 MG/ML VIAL 25 MG IVP (03:53)
[2024-04-23] MEDS: Lactated Ringers 1,000 ML 1000 ML IV (03:53)
[2024-04-23] MEDS: METOCLOPRAMIDE 10 MG in Normal Saline 50 ML 200 MG IVPB (03:53)
[2024-04-23] MEDS: ACETAMINOPHEN 1,000 MG/100 ML BAG 400 MG IVPB (03:53)
== END 2024-04-23 07:39 | disposition home or self-care (01) ==
LOC: ER 06:11
PROVIDERS: Emergency Provider Emergency Medicine Emergency Medical Services; PCP Nurse Practitioner Family
DX: G43.909 Migraine, unspecified, not intractable, without status migrainosus (principal); J44.9 Chronic obstructive pulmonary disease, unspecified; C43.9 Malignant melanoma of skin, unspecified; C78.00 Secondary malignant neoplasm of unspecified lung; C79.51 Secondary malignant neoplasm of bone; Z92.21 Personal history of antineoplastic chemotherapy; E21.3 Hyperparathyroidism, unspecified; F17.290 Nicotine dependence, other tobacco product, uncomplicated; Z87.891 Personal history of nicotine dependence
CPT/HCPCS: 36415; 96361; 96365; 96368; 96375; 99284; J0131; J1200; J2765

== ENCOUNTER 2024-06-07 08:51 | Outpatient (CLI) | payer MEDICAID, SELFPAY ==
[2024-06-07 09:07] LABS: Hemoglobin A1C 5.7 % (<5.7)
[2024-06-07 09:11] LABS: Calculated LDL 140 mg/dL (<100); Cholesterol 270 mg/dL (<200); HDL Cholesterol 64 mg/dL (>or=40); Triglyceride 332 mg/dL (<150)
[2024-06-07 09:21] LABS: ALT 59 U/L (16-63); AST 13 U/L (15-37); Albumin 3.4 g/dL (3.4-5.0); Alkaline Phosphatase 84 U/L (46-116); Amylase 140 U/L (25-115); Anion Gap 9.4 mmol/L (3-11); BUN 13 mg/dL (7-18); Bilirubin, Total 0.2 mg/dL (0.2-1.0); CO2 28.6 mmol/L (21.0-32.0); CREATININE 1.3 mg/dL (0.70-1.30); Calcium 9.1 mg/dL (8.5-10.1); Chloride 104 mmol/L (98-107); Estimated GFR 70.34 (mL/min/1.73m2); Glucose 90 mg/dL (74-106); LDH 155 U/L (85-227); Sodium 142 mmol/L (136-145); TSH 70.58 uIU/mL (0.36-3.74); Total Protein 6.9 g/dL (6.4-8.2); Troponin I 11 ng/L (<or=76)
[2024-06-07 18:13] LABS: T4, Free 0.4 ng/dL (0.8-2.2)
== END 2024-06-07 08:52 | disposition home or self-care (01) ==
LOC: LBO 08:52
PROVIDERS: Internal Medicine Hospice and Palliative Medicine; PCP Nurse Practitioner Family; Visit Provider Nurse Practitioner Family
DX: Z13.1 Encounter for screening for diabetes mellitus (principal); Z13.220 Encounter for screening for lipoid disorders; C43.9 Malignant melanoma of skin, unspecified; Z79.899 Other long term (current) drug therapy
CPT/HCPCS: 36415; 80053; 80061; 82150; 83036; 83615; 84439; 84443; 84484

== ENCOUNTER 2024-06-13 14:34 | Outpatient (CLI) | payer MEDICAID, SELFPAY ==
[2024-06-13 15:45] LABS: ALT 71 U/L (16-63); AST 28 U/L (15-37); Albumin 3.8 g/dL (3.4-5.0); Alkaline Phosphatase 73 U/L (46-116); Amylase 145 U/L (25-115); Anion Gap 7.6 mmol/L (3-11); BUN 11 mg/dL (7-18); Bilirubin, Total 0.5 mg/dL (0.2-1.0); CO2 31.4 mmol/L (21.0-32.0); CREATININE 1.1 mg/dL (0.70-1.30); Calcium 9.5 mg/dL (8.5-10.1); Chloride 103 mmol/L (98-107); Estimated GFR 85.95 (mL/min/1.73m2); Glucose 110 mg/dL (74-106); LDH 197 U/L (85-227); Potassium 4.2 mmol/L (3.5-5.1); Sodium 142 mmol/L (136-145); TSH 34.82 uIU/mL (0.36-3.74); Total Protein 7.5 g/dL (6.4-8.2)
[2024-06-14 18:11] LABS: T4, Free 0.8 ng/dL (0.8-2.2)
== END 2024-06-13 14:35 | disposition home or self-care (01) ==
LOC: LBO 14:35
PROVIDERS: PCP Nurse Practitioner Family; Visit Provider Internal Medicine Hospice and Palliative Medicine
DX: C43.9 Malignant melanoma of skin, unspecified (principal); Z79.899 Other long term (current) drug therapy
CPT/HCPCS: 36415; 80053; 82150; 83615; 84439; 84443

== ENCOUNTER 2024-07-04 12:38 | Outpatient (CLI) | payer MEDICAID, SELFPAY ==
[2024-07-04 10:44] LABS: ALT 40 U/L (16-63); AST 12 U/L (15-37); Albumin 3.7 g/dL (3.4-5.0); Alkaline Phosphatase 68 U/L (46-116); Amylase 99 U/L (25-115); Anion Gap 10.8 mmol/L (3-11); BUN 15 mg/dL (7-18); Bilirubin, Total 0.4 mg/dL (0.2-1.0); CO2 28.2 mmol/L (21.0-32.0); CREATININE 1.1 mg/dL (0.70-1.30); Calcium 9.7 mg/dL (8.5-10.1); Chloride 104 mmol/L (98-107); Estimated GFR 85.95 (mL/min/1.73m2); FREE T4 1.03 ng/dL (0.76-1.46); Glucose 87 mg/dL (74-106); LDH 178 U/L (85-227); Potassium 3.9 mmol/L (3.5-5.1); Sodium 143 mmol/L (136-145); TSH 7.59 uIU/mL (0.36-3.74)
== END 2024-07-04 12:39 | disposition home or self-care (01) ==
LOC: LBO 12:39
PROVIDERS: PCP Nurse Practitioner Family; Visit Provider Internal Medicine Hospice and Palliative Medicine
DX: C43.9 Malignant melanoma of skin, unspecified (principal); Z79.899 Other long term (current) drug therapy
CPT/HCPCS: 36415; 80053; 82150; 83615; 84439; 84443

== ENCOUNTER 2024-07-20 08:59 | Outpatient (CLI) | payer MEDICAID, SELFPAY ==
[2024-07-20 08:48] LABS: ALT 34 U/L (16-63); AST 18 U/L (15-37); Alkaline Phosphatase 57 U/L (46-116); Anion Gap 10.5 mmol/L (3-11); BUN 10 mg/dL (7-18); Bilirubin, Total 0.7 mg/dL (0.2-1.0); CO2 26.5 mmol/L (21.0-32.0); CREATININE 1.3 mg/dL (0.70-1.30); Calcium 9.7 mg/dL (8.5-10.1); Chloride 106 mmol/L (98-107); Estimated GFR 70.34 (mL/min/1.73m2); Glucose 108 mg/dL (74-106); LDH 166 U/L (85-227); Potassium 3.8 mmol/L (3.5-5.1); Sodium 143 mmol/L (136-145); Total Protein 7.3 g/dL (6.4-8.2)
== END 2024-07-20 09:00 | disposition home or self-care (01) ==
LOC: LBO 08:59
PROVIDERS: PCP Nurse Practitioner Family; Visit Provider Internal Medicine Hospice and Palliative Medicine
DX: C78.01 Secondary malignant neoplasm of right lung (principal); Z79.899 Other long term (current) drug therapy
CPT/HCPCS: 36415; 80053; 83615

== ENCOUNTER 2024-09-08 19:59 | Emergency (ER) | payer MEDICAID, SELFPAY ==
[2024-09-08 20:07] VITALS: BP 158/118; PULSE 91; RESP 20; TEMP 36.5; O2SAT 99
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
[2024-09-08] MEDS: Dexamethasone 10 MG/ML VIAL PO (20:54)
== END 2024-09-08 20:59 | disposition home or self-care (01) ==
PROVIDERS: Emergency Provider Emergency Medicine; PCP Nurse Practitioner Family
DX: J02.9 Acute pharyngitis, unspecified (principal)
CPT/HCPCS: 99283 ×2; 87880; 87081; J1100

== ENCOUNTER 2024-09-18 11:28 | Emergency (ER) | payer MEDICAID, SELFPAY ==
[2024-09-18 11:29] VITALS: BP 152/99; PULSE 55; RESP 18; TEMP 36.6; O2SAT 97
--- NOTE | 2024-09-18 12:00 | DI.CT_ITS ---
Exam(s) CT ABDOMEN PELVIS W EXAM: CT ABDOMEN PELVIS W CLINICAL HISTORY: Metastatic melanoma, abdominal pain, constipation?. TECHNIQUE: Imaging Protocol: Axial computed tomography images with coronal and sagittal reformatted images were created and reviewed CONTRAST MATERIAL: Intravenous: Omnipaque 350 Contrast volume:75 ml Oral: no COMPARISON: MR MRI - LUMBAR SPINE WO CONTRAST from 12/20/2013 CR ABD FLAT UPRIGHT PA CHEST from 10/05/2016 CR XR CHEST 2V PA LATERAL from 01/05/[address] CHEST WO from 01/05/2024 FINDINGS: ABDOMEN and PELVIS: Lung Bases: Mild ground-glass opacities noted in the left lower lobe, partially included in the field of view. Liver: Normal density. No suspicious mass. Gallbladder and biliary tract: No radiodense calculus. No wall thickening or pericholecystic fluid. No biliary dilation. Pancreas: Normal density. No abnormal calcifications or inflammatory process. No evidence of mass. Spleen: Normal. Kidneys: Normal size, contour and axis. No radiodense stones. No obstructive uropathy. No suspicious masses seen. Adrenal glands: No masses seen. Vasculature: Abdominal aorta non-dilated. Mild atherosclerotic changes in the lower abdominal aorta. Soft tissues: Unremarkable. Bladder: No gross wall thickening. No calculi.No focal mass. Bowel: No obstruction. No bowel wall thickening. Appendix normal. Normal quantity of stool. Peritoneal cavity: No ascites. No focal collection. No mesenteric inflammatory response. No free air. Bones: 12 millimeter circumscribed lytic lesion in the spinous process of L4. This is nonspecific and could represent a benign cyst cerebral given the patient's history of melanoma, a metastatic lesion is not excluded. No additional lytic lesions are identified. Chronic appearing bilateral L5 pars defects. Mild L5-S1 spondylolisthesis. Severe narrowing of the L5-S1 disc space. Reproductive organs: Unremarkable. Lymph nodes: No pathologically enlarged lymph nodes. IMPRESSION:: Ground glass infiltrate, in the left lower lobe, partially included on the exam, consistent with pneumonitis. No acute abnormality in the abdomen or pelvis. No evidence of constipation. 12 millimeter circumscribed lytic lesion in the spinous process of L4. This is nonspecific and could represent a benign cyst, however given the patient's history of melanoma, a metastatic lesion is not excluded. A bone scan could be considered for further evaluation. Unexpected findings The preliminary [facility] report was reviewed. RADIATION DOSE DELIVERED: Total DLP DATA REPOSITORY: All CT scans at this facility are submitted to the National Radiology Data Registry (NRDR) Dose Index Registry (DIR) with the [employer] (ACR). RADIATION OPTIMIZATION: All CT scans at this facility use at least one of these dose optimization techniques: automated exposure control; mA and/or kV adjustment per patient size (includes targeted exams where dose is matched to clinical indication); or iterative reconstruction.
[2024-09-18 12:33] LABS: Absolute Basophil Count 0.09 10^3/uL (0.0-0.2); Absolute Eosinophil Count 0.36 10^3/uL (0.0-0.7); Absolute Lymphocyte Count 1.43 10^3/uL (1.2-3.4); Absolute Monocyte Count 0.59 10^3/uL (0.1-0.8); Basophils % 0.7 %; Eosinophils % 2.9 %; HCT 45.9 % (40.0-50.0); HGB 15.5 g/dL (13.5-17.5); Immature Grans % 1.6 %; Lymphocytes % 11.6 %; MCH 28.9 pg (27.0-33.0); MCHC 33.8 % (32.0-36.0); MCV 86 fL (80-95); MPV 9.3 fL (8.0-11.0); Monocytes % 4.8 %; Neutrophils % 78.4 %; Platelet Count 333 10^3/uL (130-400); RBC 5.37 10^6/uL (4.36-5.78); RDW 12.6 % (11.8-14.1); RDW-SD 39.1 fL; WBC 12.37 10^3/uL (4.4-10.8)
[2024-09-18] MEDS: Normal Saline - Diluent 50 ML VIAL IJ (12:46)
[2024-09-18 12:47] LABS: ALT 29 U/L (16-63); AST 14 U/L (15-37); Albumin 3.4 g/dL (3.4-5.0); Alkaline Phosphatase 78 U/L (46-116); Anion Gap 7.8 mmol/L (3-11); BUN 16 mg/dL (7-18); Bilirubin, Total 0.2 mg/dL (0.2-1.0); CO2 27.2 mmol/L (21.0-32.0); Calcium 9.1 mg/dL (8.5-10.1); Chloride 105 mmol/L (98-107); Estimated GFR 96.37 (mL/min/1.73m2); Glucose 110 mg/dL (74-106); Potassium 4.4 mmol/L (3.5-5.1); Sodium 140 mmol/L (136-145); Total Protein 7.2 g/dL (6.4-8.2)
[2024-09-18] MEDS: Omnipaque 350 MG/ML 100 ML BTL 75 ML IJ (12:47)
--- NOTE | 2024-09-18 13:44 | DI.[facility]_ITS ---
PROCEDURE INFORMATION: Exam: CT Abdomen And Pelvis With Contrast Exam date and time: 09/18/2024 12:41 PM Age: 44 years old Clinical indication: Other: Metastatic melanoma, abdominal pain, constipation? TECHNIQUE: Imaging protocol: Computed tomography of the abdomen and pelvis with contrast. Radiation optimization: All CT scans at this facility use at least one of these dose optimization techniques: automated exposure control; mA and/or kV adjustment per patient size (includes targeted exams where dose is matched to clinical indication); or iterative reconstruction. Contrast material: OMNI 350; Contrast volume: 75 ml; Contrast route: INTRAVENOUS (IV); COMPARISON: CT CHEST WO 01/05/2024 3:31 PM FINDINGS: Lungs: Airspace disease left lower lobe. Incompletely imaged. Liver: Normal. No mass. Gallbladder and biliary ducts: Normal. No calcified stones. No ductal dilation. Pancreas: Normal. No ductal dilation. Spleen: Normal. No splenomegaly. Adrenal glands: Normal. No mass. Kidneys and ureters: Normal. No hydronephrosis. Stomach and bowel: Unremarkable. No obstruction. No mucosal thickening. Appendix: No evidence of appendicitis. Intraperitoneal space: Unremarkable. No free air. No significant fluid collection. Vasculature: Unremarkable. No abdominal aortic aneurysm. Lymph nodes: Unremarkable. No enlarged lymph nodes. Urinary bladder: Unremarkable as visualized. Reproductive: Unremarkable as visualized. Bones/joints: Anterolisthesis L5 on S1 secondary to bilateral pars defects. Advanced disc degeneration L5-S1. Soft tissues: Unremarkable. IMPRESSION: 1. No acute abdominal findings. 2. Mild airspace disease left lower lobe. Possible pneumonia. Dictated and Authenticated by: Eder Jacob MD. Orderin Emerson Campbell MD
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
[2024-09-18] MEDS: Magnesium Citrate 300 ML BTL PO (14:00)
[2024-09-18 14:04] VITALS: BP 175/101; PULSE 73; RESP 18; O2SAT 97
== END 2024-09-18 14:04 | disposition home or self-care (01) ==
PROVIDERS: Emergency Provider Student in an Organized Health Care Education/Training Program; PCP Nurse Practitioner Family
DX: R10.30 Lower abdominal pain, unspecified (principal); Z85.118 Personal history of other malignant neoplasm of bronchus and lung; K59.00 Constipation, unspecified; Z87.891 Personal history of nicotine dependence
CPT/HCPCS: 99284; 99285; 36415; 80053; 86850; 86900; 86901; 74177; 85025; J3490